=== PATIENT | female | born 2000 | race Hispanic/Latino ===

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

== ENCOUNTER 2022-09-29 22:27 | Emergency (ER) | payer MEDICAID ==
[~2022-09-29] VITALS: Ht 167.6 cm; Wt 96.2 kg
[2022-09-30 00:54] LABS: BILIRUBIN,URINE NEGATIVE (NEGATIVE); COLOR,URINE LIGHT-YELLOW (YELLOW); GLUCOSE, URINE (UA) NEGATIVE (NEGATIVE); KETONES,URINE 5 mg/dL (NEGATIVE); LEUKOCYTE ESTERASE ,URINE 250 Leu/uL (NEGATIVE); NITRATE,URINE NEGATIVE (NEGATIVE); PH,URINE 5.5 (5.0-8.0); PROTEIN,URINE 20 mg/dL (NEGATIVE); UROBILINOGEN,URINE 0.2 mg/dL (0.2-1.0)
[2022-09-30 00:56] LABS: APPEARANCE,URINE SLIGHTLY CLOUDY (CLEAR)
[2022-09-30 01:03] LABS: BACTERIA,URINE RARE /HPF (None Seen); MUCUS,URINE RARE LPF (None Seen); RENAL EPITHELIAL CELLS,URINE RARE /HPF (None Seen); SQUAMOUS EPITHELIAL CELL,UR MANY /HPF (0-2)
[2022-09-30 01:11] LABS: BASOPHILS % (AUTO) 0.5 % (0.0-5.0); EOSINOPHILS % (AUTO) 2.1 % (0.0-8.0); HEMATOCRIT 35.8 % (36-48); LYMPHOCYTES % (AUTO) 28.2 % (21.0-51.0); MEAN CORPUSCULAR HEMOGLOBIN 27.1 pg (27.0-33.0); MEAN CORPUSCULAR HGB CONC 34.1 g/dL (32.0-36.0); MEAN CORPUSCULAR VOLUME 79.4 fL (80-100); MONOCYTES % (AUTO) 10.1 % (3.0-13.0); NEUTROPHILS % (AUTO) 58.4 % (40.0-77.0); PLATELET COUNT (AUTO) 308 K/uL (130-400); RED BLOOD CELL COUNT(AUTO) 4.51 MIL/uL (4.00-5.50); RED CELL DISTRIBUTION WIDTH 12.5 % (11.0-15.5); WHITE BLOOD COUNT (AUTO) 9.6 K/uL (4.8-10.8)
[2022-09-30 01:19] LABS: CREATININE 0.7 mg/dL (0.5-1.5); POTASSIUM 3.3 mmol/L (3.5-5.1)
[2022-09-30 01:23] LABS: ALBUMIN 3.6 g/dL (3.5-5.0); TOTAL PROTEIN, SERUM 6.9 g/dL (6.0-8.3)
[2022-09-30] MEDS ORDERED: CEPH500B PO (01:25)
[2022-09-30] MEDS ORDERED: IBUP-1493 PO (01:25)
[2022-09-30 01:57] VITALS: BP 135/78
== END 2022-09-30 02:07 | disposition home or self-care (01) ==
LOC: EDH 22:27
DX: N39.0 Urinary tract infection, site not specified (principal); J06.9 Acute upper respiratory infection, unspecified; Z79.899 Other long term (current) drug therapy; Z20.822 Contact with and (suspected) exposure to COVID-19
CPT/HCPCS: 99283; 87635; 80053; 83690; 85025; 87088; 87880; 87804 ×2; 81001; 81025; 36415; C9803

== ENCOUNTER 2023-06-24 00:12 | Emergency (ER) | payer MEDICAID ==
[~2023-06-24] VITALS: Ht 167.6 cm; Wt 98.0 kg
[~2023-06-24 00:12] MED LIST changes: +CEPH500B PO; +IBUP-1493 PO
[2023-06-24 00:14] VITALS: BP 172/66; PULSE 71; RESP 18; O2SAT 97
[2023-06-24 00:45] LABS: BASOPHILS # (AUTO) 0.06 K/uL (0.00-0.20); BASOPHILS % (AUTO) 0.6 % (0.0-5.0); EOSINOPHILS # (AUTO) 0.22 K/uL (0.00-0.70); EOSINOPHILS % (AUTO) 2.1 % (0.0-8.0); HEMATOCRIT 38.7 % (36-48); IMMATURE GRANULOCYTE ABSOLUTE 0.08 K/uL (0-1); LYMPHOCYTES # (AUTO) 3.6 K/uL (1.0-4.8); LYMPHOCYTES % (AUTO) 34.1 % (21.0-51.0); MEAN CORPUSCULAR HEMOGLOBIN 27.1 pg (27.0-33.0); MEAN CORPUSCULAR HGB CONC 33.1 g/dL (32.0-36.0); MONOCYTES # (AUTO) 0.8 K/uL (0.1-1.0); MONOCYTES % (AUTO) 7.5 % (3.0-13.0); NEUTROPHILS # (AUTO) 5.8 K/uL (1.8-7.7); NEUTROPHILS % (AUTO) 54.9 % (40.0-77.0); PLATELET COUNT (AUTO) 362 K/uL (130-400); RED BLOOD CELL COUNT(AUTO) 4.72 MIL/uL (4.00-5.50); RED CELL DISTRIBUTION WIDTH 12.3 % (11.0-15.5); WHITE BLOOD COUNT (AUTO) 10.5 K/uL (4.8-10.8)
[2023-06-24 00:48] LABS: CREATININE 0.8 mg/dL (0.5-1.5); POTASSIUM 3.9 mmol/L (3.5-5.1)
[2023-06-24 00:49] LABS: APPEARANCE,URINE CLOUDY (CLEAR); BILIRUBIN,URINE NEGATIVE (NEGATIVE); COLOR,URINE LIGHT-YELLOW (YELLOW); GLUCOSE, URINE (UA) NEGATIVE (NEGATIVE); KETONES,URINE NEGATIVE (NEGATIVE); LEUKOCYTE ESTERASE ,URINE NEGATIVE Leu/uL (NEGATIVE); NITRATE,URINE NEGATIVE (NEGATIVE); OCCULT BLOOD,URINE NEGATIVE (NEGATIVE); PROTEIN,URINE 10 mg/dL (NEGATIVE); UROBILINOGEN,URINE 0.2 mg/dL (0.2-1.0)
[2023-06-24 00:50] LABS: ADD UA MICROSCOPIC YES
[2023-06-24 00:53] LABS: ALBUMIN 3.9 g/dL (3.5-5.0); BACTERIA,URINE RARE /HPF (None Seen); BILIRUBIN,TOTAL 0.2 mg/dL (0.2-1.0); SQUAMOUS EPITHELIAL CELL,UR MANY /HPF (0-2); TOTAL PROTEIN, SERUM 7.1 g/dL (6.0-8.3)
[2023-06-24] MEDS: ONDANSETRON 4MG INJ IVP ONE (02:32)
[2023-06-24] MEDS: KETOROLAC 30MG VIAL (30MG/ML) IVP ONE (02:32)
[2023-06-24] MEDS: KETOROLAC 30MG VIAL (30MG/ML) ONE (02:36)
[2023-06-24] MEDS: ONDANSETRON 4MG INJ ONE (02:36)
[2023-06-24] MEDS ORDERED: ONDA4TAB10 PO (06:48)
[2023-06-24] MEDS ORDERED: IBUP-2077 PO (06:48)
== END 2023-06-24 07:12 | disposition home or self-care (01) ==
LOC: EDH 00:12
DX: R10.2 Pelvic and perineal pain (principal); E28.2 Polycystic ovarian syndrome; Z79.1 Long term (current) use of non-steroidal anti-inflammatories (NSAID)
CPT/HCPCS: 99285; 74176; 96374; 76830; 96375; 80053; 83690; 85025; 87797; 87486; 81001; 81025; 36415; J2405; J1885

== ENCOUNTER 2023-06-25 14:32 | Emergency (ER) | payer MEDICAID ==
[~2023-06-25] VITALS: Ht 167.6 cm; Wt 97.5 kg
[~2023-06-25 14:32] MED LIST changes: +IBUP-2077 PO
[2023-06-25] MEDS ORDERED: FAMOTIDINE 20MG TAB PO ONE (17:00)
[2023-06-25] MEDS ORDERED: ONDANSETRON ODT 4MG TAB SL ONE (17:00)
[2023-06-25] MEDS ORDERED: HYDROCODONE/ACETAMINOPHEN 5/325 MG TAB PO ONE (17:00)
[2023-06-25 17:10] VITALS: BP 124/72; PULSE 84; RESP 16; O2SAT 96
== END 2023-06-25 17:17 | disposition home or self-care (01) ==
LOC: EDH 14:32
DX: R10.2 Pelvic and perineal pain (principal); N83.202 Unspecified ovarian cyst, left side; F90.9 Attention-deficit hyperactivity disorder, unspecified type
CPT/HCPCS: 76830

== ENCOUNTER 2023-07-20 10:01 | Emergency (ER) | payer MEDICAID, OTHER ==
[~2023-07-20] VITALS: Ht 167.6 cm; Wt 97.5 kg
[2023-07-20] MEDS ORDERED: KETOROLAC 15MG/ML VIAL (15MG/ML) IV ONE (10:30)
[2023-07-20] MEDS ORDERED: ONDANSETRON 4MG INJ IVP ONE (10:30)
[2023-07-20] MEDS ORDERED: 0.9%NACL 1000ML 1,000 ML IV ONE (10:30)
[2023-07-20] MEDS ORDERED: FAMOTIDINE 20MG TAB PO ONE (10:30)
[2023-07-20 10:43] LABS: BASOPHILS # (AUTO) 0.04 K/uL (0.00-0.20); BASOPHILS % (AUTO) 0.5 % (0.0-5.0); EOSINOPHILS % (AUTO) 1.3 % (0.0-8.0); HEMATOCRIT 41.1 % (36-48); IMMATURE GRANULOCYTE ABSOLUTE 0.05 K/uL (0-1); LYMPHOCYTES # (AUTO) 1.9 K/uL (1.0-4.8); LYMPHOCYTES % (AUTO) 24.7 % (21.0-51.0); MEAN CORPUSCULAR HEMOGLOBIN 26.8 pg (27.0-33.0); MEAN CORPUSCULAR HGB CONC 32.8 g/dL (32.0-36.0); MEAN CORPUSCULAR VOLUME 81.5 fL (80-100); MONOCYTES # (AUTO) 0.5 K/uL (0.1-1.0); MONOCYTES % (AUTO) 6.3 % (3.0-13.0); NEUTROPHILS % (AUTO) 66.5 % (40.0-77.0); PLATELET COUNT (AUTO) 332 K/uL (130-400); RED BLOOD CELL COUNT(AUTO) 5.04 MIL/uL (4.00-5.50); RED CELL DISTRIBUTION WIDTH 12.6 % (11.0-15.5); WHITE BLOOD COUNT (AUTO) 7.5 K/uL (4.8-10.8)
[2023-07-20 10:51] LABS: APPEARANCE,URINE CLOUDY (CLEAR); BILIRUBIN,URINE NEGATIVE (NEGATIVE); COLOR,URINE LIGHT-YELLOW (YELLOW); GLUCOSE, URINE (UA) NEGATIVE (NEGATIVE); KETONES,URINE NEGATIVE (NEGATIVE); LEUKOCYTE ESTERASE ,URINE 75 Leu/uL (NEGATIVE); NITRATE,URINE NEGATIVE (NEGATIVE); OCCULT BLOOD,URINE NEGATIVE (NEGATIVE); PROTEIN,URINE 10 mg/dL (NEGATIVE); UROBILINOGEN,URINE 0.2 mg/dL (0.2-1.0)
[2023-07-20 10:53] LABS: CREATININE 0.8 mg/dL (0.5-1.5); POTASSIUM 3.6 mmol/L (3.5-5.1)
[2023-07-20 10:55] LABS: ADD UA MICROSCOPIC YES; HCG,QUALITATIVE URINE NEGATIVE (NEGATIVE)
[2023-07-20 10:57] LABS: BACTERIA,URINE FEW /HPF (None Seen); SQUAMOUS EPITHELIAL CELL,UR MOD /HPF (0-2)
[2023-07-20 10:58] LABS: ALBUMIN 3.8 g/dL (3.5-5.0); BILIRUBIN,TOTAL 0.4 mg/dL (0.2-1.0)
[2023-07-20 11:17] LABS: RAPID GROUP A STREP negative (NEGATIVE)
[2023-07-20 11:21] LABS: SARS-CoV-2, RNA, NAAT NEGATIVE SARS CoV-2 (NEGATIVE)
[2023-07-20] MEDS ORDERED: CEFTRIAXONE 1G VIAL IVPB ONE (11:30)
[2023-07-20] MEDS ORDERED: CEPH500B PO (12:27)
[2023-07-20] MEDS ORDERED: FAMO-136 PO (12:27)
[2023-07-20] MEDS ORDERED: ONDA4TAB10 PO (12:27)
[2023-07-20 12:40] VITALS: BP 117/56; PULSE 72; RESP 20; O2SAT 97
== END 2023-07-20 12:43 | disposition home or self-care (01) ==
LOC: EDH 10:01
DX: N39.0 Urinary tract infection, site not specified (principal); R10.30 Lower abdominal pain, unspecified; R11.2 Nausea with vomiting, unspecified; R35.0 Frequency of micturition; R30.0 Dysuria; R09.81 Nasal congestion; Z79.899 Other long term (current) drug therapy; Z98.890 Other specified postprocedural states
CPT/HCPCS: 99285; 96374; 76830; 96375; 87635; 96361; 80053; 85025; 87088; 87880; 81001; 81025; 36415; C9803; J7030; J0696; J2405; J1885

== ENCOUNTER 2023-10-17 15:00 | Emergency (ER) | payer OTHER ==
[~2023-10-17] VITALS: Ht 165.1 cm; Wt 97.5 kg
[~2023-10-17 15:00] MED LIST changes: +FAMO-136 PO
[2023-10-17 15:14] VITALS: BP 134/83; PULSE 120; RESP 16
[2023-10-17 16:00] LABS: SARS-CoV-2, RNA, NAAT NEGATIVE SARS CoV-2 (NEGATIVE)
[2023-10-17 16:12] LABS: RAPID GROUP A STREP positive (NEGATIVE)
[2023-10-17 16:15] LABS: INFLUENZA TYPE A Negative For Type A (NEGATIVE); INFLUENZA TYPE B Negative For Type B (NEGATIVE)
[2023-10-17] MEDS ORDERED: AMOX1TAB16 PO (16:46)
[2023-10-17 19:22] LABS: APPEARANCE,URINE CLEAR (CLEAR); BILIRUBIN,URINE NEGATIVE (NEGATIVE); COLOR,URINE LIGHT-YELLOW (YELLOW); GLUCOSE, URINE (UA) NEGATIVE (NEGATIVE); KETONES,URINE NEGATIVE (NEGATIVE); LEUKOCYTE ESTERASE ,URINE NEGATIVE Leu/uL (NEGATIVE); NITRATE,URINE NEGATIVE (NEGATIVE); OCCULT BLOOD,URINE NEGATIVE (NEGATIVE); PROTEIN,URINE NEGATIVE (NEGATIVE); UROBILINOGEN,URINE 0.2 mg/dL (0.2-1.0)
[2023-10-17 19:23] LABS: ADD UA MICROSCOPIC NO
[2023-10-17] MEDS ORDERED: CEFTRIAXONE 1G VIAL IM ONE (19:30)
[2023-10-17] MEDS ORDERED: DEXAMETHASONE SOD PHOSPHATE 4 MG/ML 1ML VIAL IM ONE (19:30)
== END 2023-10-17 20:03 | disposition home or self-care (01) ==
LOC: EDH 15:00
DX: J02.0 Streptococcal pharyngitis (principal); R51.9 Headache, unspecified; H92.01 Otalgia, right ear; N83.201 Unspecified ovarian cyst, right side; Z20.822 Contact with and (suspected) exposure to COVID-19; Z79.899 Other long term (current) drug therapy
CPT/HCPCS: 99284; 87635; 87880; 87804 ×2; 81003; 81025; 96372 ×2; J1100; J0696

== ENCOUNTER 2023-11-28 06:42 | Emergency (ER) | payer OTHER ==
[~2023-11-28] VITALS: Ht 167.6 cm; Wt 97.5 kg
[~2023-11-28 06:42] MED LIST changes: +AMOX1TAB16 PO
[2023-11-28 06:58] LABS: BASOPHILS # (AUTO) 0.07 K/uL (0.00-0.20); BASOPHILS % (AUTO) 0.7 % (0.0-5.0); EOSINOPHILS # (AUTO) 0.26 K/uL (0.00-0.70); EOSINOPHILS % (AUTO) 2.4 % (0.0-8.0); HEMATOCRIT 39.4 % (36-48); IMMATURE GRANULOCYTE ABSOLUTE 0.11 K/uL (0-1); MEAN CORPUSCULAR HEMOGLOBIN 26.7 pg (27.0-33.0); MEAN CORPUSCULAR VOLUME 78.6 fL (80-100); MONOCYTES # (AUTO) 0.9 K/uL (0.1-1.0); MONOCYTES % (AUTO) 8.2 % (3.0-13.0); NEUTROPHILS # (AUTO) 6.4 K/uL (1.8-7.7); NEUTROPHILS % (AUTO) 59.7 % (40.0-77.0); PLATELET COUNT (AUTO) 402 K/uL (130-400); RED BLOOD CELL COUNT(AUTO) 5.01 MIL/uL (4.00-5.50); RED CELL DISTRIBUTION WIDTH 12.4 % (11.0-15.5); WHITE BLOOD COUNT (AUTO) 10.8 K/uL (4.8-10.8)
[2023-11-28] MEDS: CHARCOAL/SORBITOL 50 GM/240 ML SUSP PO SCH (07:01)
[2023-11-28 07:10] LABS: APPEARANCE,URINE CLEAR (CLEAR); BILIRUBIN,URINE NEGATIVE (NEGATIVE); COLOR,URINE LIGHT-YELLOW (YELLOW); GLUCOSE, URINE (UA) NEGATIVE (NEGATIVE); KETONES,URINE NEGATIVE (NEGATIVE); LEUKOCYTE ESTERASE ,URINE NEGATIVE Leu/uL (NEGATIVE); NITRATE,URINE NEGATIVE (NEGATIVE); OCCULT BLOOD,URINE NEGATIVE (NEGATIVE); PROTEIN,URINE NEGATIVE (NEGATIVE); UROBILINOGEN,URINE 3 mg/dL (0.2-1.0)
[2023-11-28 07:11] LABS: ADD UA MICROSCOPIC NO
[2023-11-28 07:18] LABS: ALANINE AMINOTRANSFERASE 33 U/L (12-78); ALBUMIN 3.7 g/dL (3.5-5.0); ASPARTATE AMINOTRANSFERASE 19 U/L (10-37); BILIRUBIN,TOTAL 0.3 mg/dL (0.2-1.0); CARBON DIOXIDE 27 mmol/L (21-32); CHLORIDE 104 mmol/L (101-111); CREATINE KINASE, TOTAL 83 U/L (21-232); CREATININE 0.9 mg/dL (0.5-1.5); GLOMERULAR FILTR. RATE CALC 93 mL/min (>90); GLUCOSE,RANDOM 103 mg/dL (70-105); POTASSIUM 3.9 mmol/L (3.5-5.1); SODIUM SERUM 140 mmol/L (136-145); TOTAL PROTEIN, SERUM 7.2 g/dL (6.0-8.3); UREA NITROGEN, BLOOD 9 mg/dL (7-18)
[2023-11-28 07:19] LABS: AMPHET/METH SCREEN,URINE NEGATIVE (NEGATIVE); BARBITURATE SCREEN, URINE NEGATIVE (NEGATIVE); BENZODIAZEPINES SCREEN,URINE NEGATIVE (NEGATIVE); CANNABINOID SCREEN,URINE NEGATIVE (NEGATIVE); COCAINE SCREEN,URINE NEGATIVE (NEGATIVE); OPIATE SCREEN,URINE NEGATIVE (NEGATIVE); PHENCYCLIDINE SCREEN,URINE NEGATIVE (NEGATIVE)
[2023-11-28 07:25] LABS: ALCOHOL, BLOOD < 3 mg/dL (0-10)
[2023-11-28 07:43] LABS: ACETAMINOPHEN < 1 mcg/mL (10-30); SALICYLATE < 2.8 mg/dL (2.8-20.0)
[2023-11-28 08:04] LABS: HCG,QUALITATIVE URINE NEGATIVE (NEGATIVE)
[2023-11-28] MEDS: LACTATED RINGERS 1000ML 1,000 ML IV ONE (08:27)
[2023-11-28 17:10] VITALS: BP 118/76; PULSE 84; RESP 18; O2SAT 100
== END 2023-11-28 17:59 ==
LOC: EDH 06:42
DX: T45.0X2A Poisoning by antiallergic and antiemetic drugs, intentional self-harm, initial encounter (principal); F41.9 Anxiety disorder, unspecified; F32.A Depression, unspecified; Z79.899 Other long term (current) drug therapy; Z98.890 Other specified postprocedural states; Y92.89 Other specified places as the place of occurrence of the external cause
CPT/HCPCS: 99285; 96360; 96361; 82550; 84484; 80053; 80305; 85025; 81025; 36415; 93005; 81003; J7120; G0481

== ENCOUNTER 2024-05-09 10:49 | Emergency (ER) | payer BC, OTHER ==
[~2024-05-09] VITALS: Ht 165.1 cm; Wt 99.3 kg
[~2024-05-09 10:49] MED LIST changes: +ONDA-243 PO; -ONDA4TAB10 PO
[2024-05-09] MEDS: ACETAMINOPHEN WITH CODEINE 1 TAB TAB PO ONE (11:33)
[2024-05-09] MEDS ORDERED: ACET-2079 PO (13:01)
[2024-05-09 13:09] VITALS: BP 136/81; PULSE 90; RESP 18; O2SAT 99
== END 2024-05-09 13:30 | disposition home or self-care (01) ==
LOC: EDH 10:49
DX: S42.325A Nondisplaced transverse fracture of shaft of humerus, left arm, initial encounter for closed fracture (principal); Z79.899 Other long term (current) drug therapy; W18.39XA Other fall on same level, initial encounter; Y93.89 Activity, other specified; Y92.832 Beach as the place of occurrence of the external cause; Y99.8 Other external cause status
CPT/HCPCS: 29105; 73060

== ENCOUNTER 2024-07-11 09:51 | Emergency (ER) | payer BC ==
[~2024-07-11] VITALS: Ht 165.1 cm; Wt 99.8 kg
[~2024-07-11 09:51] MED LIST changes: +ACET-2079 PO
[2024-07-11 09:53] VITALS: TEMP 98.2
[2024-07-11 10:19] LABS: APPEARANCE,URINE CLEAR (CLEAR); BILIRUBIN,URINE NEGATIVE (NEGATIVE); COLOR,URINE LIGHT-YELLOW (YELLOW); GLUCOSE, URINE (UA) NEGATIVE (NEGATIVE); KETONES,URINE NEGATIVE (NEGATIVE); LEUKOCYTE ESTERASE ,URINE NEGATIVE Leu/uL (NEGATIVE); NITRATE,URINE NEGATIVE (NEGATIVE); OCCULT BLOOD,URINE NEGATIVE (NEGATIVE); PH,URINE 5.5 (5.0-8.0); PROTEIN,URINE NEGATIVE (NEGATIVE); UROBILINOGEN,URINE 0.2 mg/dL (0.2-1.0)
[2024-07-11 10:20] LABS: ADD UA MICROSCOPIC NO
[2024-07-11 10:24] LABS: HCG,QUALITATIVE URINE NEGATIVE (NEGATIVE)
[2024-07-11 10:27] LABS: BASOPHILS # (AUTO) 0.04 K/uL (0.00-0.20); BASOPHILS % (AUTO) 0.5 % (0.0-5.0); EOSINOPHILS # (AUTO) 0.15 K/uL (0.00-0.70); HEMATOCRIT 38.7 % (36-48); IMMATURE GRANULOCYTE ABSOLUTE 0.07 K/uL (0-1); LYMPHOCYTES # (AUTO) 2.4 K/uL (1.0-4.8); LYMPHOCYTES % (AUTO) 31.6 % (21.0-51.0); MEAN CORPUSCULAR HEMOGLOBIN 25.7 pg (27.0-33.0); MEAN CORPUSCULAR HGB CONC 32.3 g/dL (32.0-36.0); MEAN CORPUSCULAR VOLUME 79.6 fL (80-100); MONOCYTES # (AUTO) 0.5 K/uL (0.1-1.0); MONOCYTES % (AUTO) 6.5 % (3.0-13.0); NEUTROPHILS # (AUTO) 4.4 K/uL (1.8-7.7); NEUTROPHILS % (AUTO) 58.5 % (40.0-77.0); PLATELET COUNT (AUTO) 315 K/uL (130-400); RED BLOOD CELL COUNT(AUTO) 4.86 MIL/uL (4.00-5.50); RED CELL DISTRIBUTION WIDTH 13.1 % (11.0-15.5); WHITE BLOOD COUNT (AUTO) 7.5 K/uL (4.8-10.8)
[2024-07-11 10:36] LABS: CREATININE 0.8 mg/dL (0.5-1.0); POTASSIUM 3.9 mmol/L (3.5-5.1)
[2024-07-11 10:40] LABS: ALBUMIN 3.4 g/dL (3.5-5.0); BILIRUBIN,TOTAL 0.3 mg/dL (0.2-1.0)
[2024-07-11] MEDS: ondanSETRON 4MG INJ IVP ONE (11:37)
[2024-07-11] MEDS: 0.9%NACL 1000ML 1,000 ML IV ONE (11:37)
[2024-07-11] MEDS ORDERED: ONDA-243 PO (12:24)
[2024-07-11 13:00] VITALS: BP 125/75; PULSE 70; RESP 20; O2SAT 99
== END 2024-07-11 13:11 | disposition home or self-care (01) ==
LOC: EDH 09:51
DX: K52.9 Noninfective gastroenteritis and colitis, unspecified (principal); R11.2 Nausea with vomiting, unspecified; Z79.1 Long term (current) use of non-steroidal anti-inflammatories (NSAID)
CPT/HCPCS: 99284; 96374; 96361; 80053; 85025; 81003; 81025; 36415; J7030; J2405